=== PATIENT | female | born 1980 | race Caucasian/White ===

== ENCOUNTER 2017-12-21 13:33 | Day surgery (SDC) | payer BC ==
[2017-12-20 15:12] VITALS: BMI 34.0
[~2017-12-21 13:33] MED LIST: Dexamethasone 20 MG/5 ML VIAL ONE; Lidocaine 1% PF 5 ML VIAL ONE; Ondansetron PF 4 MG/2 ML Vial ONE; PROPOFOL 200 MG/20 ML VIAL ONE; Succinylcholine Chloride 20 MG/ML 10 ml SYRINGE FS ONE
[2017-12-21] MEDS ORDERED: Oxymetazoline HCl 0.05% ( 15 ML ) ONE ×2 (14:08→15:08)
[2017-12-21] MEDS ORDERED: Fentanyl 100 MCG/2 ML VIAL ONE ×4 (15:03→16:57)
[2017-12-21] MEDS ORDERED: Midazolam HCl 2 mg/2 ml Vial ONE (15:03)
[2017-12-21] MEDS ORDERED: Lidocaine 1% w/Epinephrine 1:100K 30 ML VIAL ONE (15:08)
[2017-12-21] MEDS ORDERED: HYDROmorphone 2 MG/ML VIAL ONE (16:31)
[2017-12-21] MEDS ORDERED: Morphine 4 MG/ML VIAL ONE (16:47)
[2017-12-21] MEDS ORDERED: Promethazine HCl 25 MG/ML VIAL ONE (18:14)
--- NOTE | 2017-12-21 19:22 | OP ---
PREOPERATIVE DIAGNOSES: Obstructive tonsillar hypertrophy, hypertrophic inferior turbinates, sleep d isordered breathing. POSTOPERATIVE DIAGNOSES: Obstructive tonsillar hypertrophy, hypertrophic inferior turbinates, sleep disordered breathing. PROCEDURES PERFORMED: Tonsillectomy over 12 years of age and bilateral nasal endoscopy with submucos al resection of inferior turbinates. PROCEDURE IN DETAIL: After consent was obtained, the patient was identified, brought to the operatin g room, and placed on the operating table in the supine position. General endotracheal anesthesia an d intravenous access was obtained and we proceeded with positioning the patient for oropharyngeal josué all. Oropharyngeal exposure was obtained with a Reina-Rajan mouth gag after a head drape was placed and secured with a towel clip. The Reina-Rajan mouth gag was then suspended from the Dhillon tray and palatal elevation was achieved with a red rubber catheter. The right tonsil was addressed first. We used a curved Allis to grasp the tonsil and retract it medially as an anterior pillar incision was m yobani with a #12 blade. The retrotonsillar fascial plane was then established and blunt dissection was performed with the suction cautery. Blood vessels were anticipated, identified, and cauterized as t hey were encountered. Ultimately, dissection was carried to the posterior tonsillar pillar mucosa wh ich was incised hemostatically, as well as the base of tongue connection. The tonsil was then passed off as a specimen and bleeding points within the tonsillar bed were cauter ized under direct visualization. We subsequently turned our attention to the contralateral side, whe re using a similar technique, a near identical procedure was performed. Again, the tonsil was graspe d and retracted medially with a curved Allis as an anterior pillar incision was made with a #12 blade . The retrotonsillar fascial plane was established and while the anterior pillar was retracted media lly, the hemostatic blunt dissection of the tonsil with a suction cautery was performed with blood ve ssels anticipated, identified, and cauterized as they were encountered. Again, dissection continued to the base of tongue and posterior tonsillar pillar mucosa which was incised in a hemostatic fashion . The tonsillar beds were then carefully inspected and bleeding points were identified and cauterize d with a suction cautery. After this portion of the procedure, hemostasis was completely obtained. The patient's oral cavity was copiously irrigated with iced saline and subsequently suctioned. We th en used the red rubber catheter to suction the gastric contents. With the 0-degree endoscope, the patient underwent systematic nasal endoscopy. There were no suspici ous internasal masses or lesions identified. We then focused our attention to the osteomeatal comple x region under the middle turbinate. The inferior turbinates were visualized with a 0-degree endoscope and outfractured with a [place] eleva tor. The inferior medial aspect was cauterized with the electrocautery. Hemostasis was obtained . After adequate airway was established, we turned our attention to the contralateral side and used a s imilar procedure. Again, a Ignacio elevator was used to outfracture inferior turbinates under endoscop ic visualization. With a suction cautery, the free inferior medial aspect was cauterized under direc t visualization along the length of the inferior turbinate. The patient was subsequently aroused, awakened, and extubated without difficulty and transported to [facility] recovery room in stable condition. There were no complications.
== END 2017-12-21 19:20 | disposition home or self-care (01) ==
LOC: SDC 13:33
PROVIDERS: ATTEND Specialist
PROC: 09SL8ZZ Reposition Nasal Turbinate, Via Natural or Artificial Opening Endoscopic (ICD-10-PCS; principal; 2017-12-21)
PROC: 0CTPXZZ Resection of Tonsils, External Approach (ICD-10-PCS; principal; 2017-12-21)
DX: J34.3 Hypertrophy of nasal turbinates (principal); J35.1 Hypertrophy of tonsils; G47.30 Sleep apnea, unspecified; E78.5 Hyperlipidemia, unspecified; F41.9 Anxiety disorder, unspecified; F32.9 Major depressive disorder, single episode, unspecified; I47.1 Supraventricular tachycardia; E06.3 Autoimmune thyroiditis; Z87.891 Personal history of nicotine dependence; Z79.899 Other long term (current) drug therapy
CPT/HCPCS: 36415; 85014; 88304; 96374; 96375; J1100; J1170; J2001; J2250; J2270; J2405; J2550; J2704; J3010